=== PATIENT | female | born 1965 | race Caucasian/White ===

== ENCOUNTER 2017-01-21 10:48 | Emergency (ER) | payer BC ==
[~2017-01-21] VITALS: Ht 157.5 cm; Wt 65.0 kg
[2017-01-21 10:51] VITALS: Ht 157.5 cm; Wt 65.0 kg
--- NOTE | 2017-01-21 11:06 | ERD ---
ER Documentation Chief Complaint Chief Complaint Complains of back pain after a slip and fall HPI 51y/o female patient with history of diabetes, presents to the emergency department c/o sudden onset of lower back pain, constant, that started 7 days ago after a ground-level fall landing on her buttocks. The pain is dull, rated 6 /10, without radiation. The symptoms are probably caused by the fall and are associated with decreased range of motion for lateral rotation and bending over. Aggravating factors: Lateral rotation. Alleviating factors: Standing still. Denies fever, chills, N/V/D. No recent history of previous episodes. Treatment attempted: None. Previous evaluation: At the time of the fall 7 days ago, she was seen in the hospital in [place] and according to the patient the x-rays were normal. ROS SYSTEMIC symptoms: no fever, chills, no night sweats, no weight loss EYE symptoms: No blurred vision, no eye discharge OTOLARYNGEAL symptoms: No hearing loss. No ear pain, no sore throat CARDIOVASCULAR symptoms: No chest pain or discomfort, no palpitations. PULMONARY symptoms: No dyspnea, no cough, no wheezing. GASTROINTESTINAL symptoms: No abdominal pain, no nausea, no vomiting, no diarrhea MUSCULOSKELETAL symptoms: No arthralgias, no muscle aches. NEUROLOGY symptoms: No confusion, no syncope, no numbness or tingling. SKIN no rashes Medications Home Meds Active Scripts Ibuprofen* (Motrin*) 600 Mg Tab, 600 MG PO Q8, #30 TAB Prov:COURTNEY MONTGOMERY MD 01/21/17 Hydrocodone/Acetaminophen ([place] 5-325 Tablet) 1 Each Tablet, 1 TAB PO Q6H Y for PAIN, #20 TAB Prov:COURTNEY MONTGOMERY MD 01/21/17 Allergies Allergies: Coded Allergies: morphine (Verified Allergy, Intermediate, 01/21/17) Physical Exam Vitals Vital Signs Date Time Temp Pulse Resp B/P Pulse Ox O2 Delivery O2 Flow Rate FiO2 01/21/17 10:51 98.4 92 20 161/100 98 Physical Exam Patient is in mild acute distress due to pain, vital signs stable. Alert and fully oriented. EYES: PERRLA, EOMI, Sclera and conjunctiva appear normal. EARS: Canals clear, tympanic membranes WNL THROAT: Normal oropharynx. NECK: Supple, No lymphadenopathy. Full ROM without pain or tenderness. HEART: RRR, no rubs, murmurs, clicks or gallops. LUNGS: Clear to auscultation. ABDOMEN: Soft, non-tender without masses or hepatosplenomegaly. EXTREMITIES: No edema bilaterally. BACK: Full ROM, no deformity, bilateral lower muscle spasm. No vertebral tenderness NEURO: Cranial nerves grossly intact, no motor or sensory deficit Results 24 hrs Current Medications Medications (Trade) Dose Ordered Sig/Tao Route PRN Reason Start Time Stop Time Status Last Admin Dose Admin Ketorolac Tromethamine (Toradol) 60 mg ONCE STAT IM 01/21/17 11:10 01/21/17 11:14 DC 01/21/17 11:21 [place] [id number] Radiology Main Line: [phone] DIAGNOSTIC IMAGING REPORT Patient: KP PLAZA : 1965 Age: 51 Sex: F MR #: [id number] DOS: 01/21/17 0000 Ordering MD: COURTNEY MONTGOMERY MD Location: [facility] OF [facility] Room/Bed: PROCEDURE: XR Lumbar Spine. CLINICAL INDICATION: Back pain status post fall. TECHNIQUE: AP, lateral and cone-down lateral views of the lumbar spine were obtained. COMPARISON: No prior studies are available for comparison. FINDINGS: The bone mineralization is age appropriate. There are mild superior endplate compression deformities of the T12 and L1 vertebral bodies. There is also a mild inferior endplate compression deformity of the T12 vertebral body. Osseous alignment appears maintained. No acute subluxation. There is moderate disc space narrowing at L2-L3 with mild disc space narrowing elsewhere. Sacroiliac joints appear patent. IMPRESSION: Mild superior endplate compression deformities of the T12 and L1 vertebral bodies, which maybe more chronic. Mild inferior endplate compression deformity of the T12 vertebral body is age indeterminant. Recommend correlation with pain to assess for acuity. Further evaluation can be obtained with CT. RPTAT: [facility] Physician Alireza Date Time Electronically viewed and signed by Philipy Ho, Physician on 01/21/2017 12:39 PH/ CC: COURTNEY MONTGOMERY MD [place] [id number] Radiology Main Line: [phone] DIAGNOSTIC IMAGING REPORT Patient: KP PLAZA : 1965 Age: 51 Sex: F MR #: [id number] DOS: 01/21/17 1259 Ordering MD: COURTNEY MONTGOMERY MD Location: [facility] Room/Bed: PROCEDURE: CT Lumbar Spine without intravenous contrast CLINICAL INDICATION: Back pain after a fall. COMPARISON: Radiograph 01/21/2017. TECHNIQUE: Axial noncontrast CT images of the lumbar spine with coronal and sagittal reformats. DOSE ESTIMATE: CTDI vol = 8 mGy. DLP = 179 mGy-cm. One or more of the following dose reduction techniques were used: automated exposure control, adjustment of the mA and/or kV according to patient size, or use of iterative reconstruction. FINDINGS: Segmentation: For this report the last well-formed disc is labeled L5-S1. Alignment: Normal. Vertebrae: Diffuse osteopenia. Superior and inferior L3 endplate Schmorl's nodes and irregularity results in 80% height loss. Moderate inferior L2 endplate irregularity. Inferior T12 endplate cupping with probable vertebral height loss. Discs: Marked L2-L3 disc height loss with vacuum phenomenon. Mild L3-L4 and L5- S1 disc height loss. Degenerative change: T12-L1: 2 mm disc bulge results in mild bilateral foraminal narrowing. No significant central canal narrowing. L1-L2: 2 mm disc bulge, mild bilateral facet arthropathy, ligamentum flavum laxity without significant central canal narrowing or foraminal narrowing. L2-L3: 2 mm disc bulge, disc height loss, and dorsal epidural fat results in mild central canal narrowing and moderate bilateral foraminal narrowing. L3-L4: 2 mm disc bulge, ligamentum flavum laxity, and dorsal epidural fat without significant central canal narrowing. Mild right and moderate left foraminal narrowing. L4-L5: 1 mm disc bulge, ligamentum flavum laxity, and dorsal epidural fat results in mild bilateral foraminal narrowing. No significant central canal narrowing. L5-S1: 2 mm disc bulge, moderate ligamentum flavum laxity, disc height loss, and circumferential epidural fat results in minimal central canal narrowing. No significant foraminal narrowing. Para-vertebral soft tissues: Normal. Visualized abdomen and pelvis: Normal. Additional comment: None. IMPRESSION: 1. Osteopenia. 2. Large endplate Schmorl's nodes within the L3 vertebral body result in 80% vertebral height loss. 3. Moderate degenerative disc disease at L2-L3 and L3- L4. If there is clinical concern for a diskitis - osteomyelitis, an MRI could be performed for further evaluation. 4. T12 height loss, predominately involving the endplates, a pattern suggesting at the vertebral height loss is related to underlying osteopenia. RPTAT: PP Physician Vero Date Time Electronically viewed and signed by Physician Vero on 01/21/2017 14: 07 LG/ CC: COURTNEY MONTGOMERY MD Procedures/MDM 51y/o female patient history of diabetes, presents to the ED c/o low back pain for 5 days after a ground-level fall. Vital signs stable, Physical exam unremarkable, neurovascular exam intact. Differential diagnosis include but not limited to: Acute musculoskeletal injury, herniated disc, urolithiasis, UTI , arthritis, degenerative disc disease. Low suspicion for vertebral fracture, cauda equina syndrome, psoas abscess.. Pertinent Data: Radiology: CT lumbar spine requested because abnormal findings in XR may suggest vertebral FX IMPRESSION: 1. Osteopenia. 2. Large endplate Schmorl's nodes within the L3 vertebral body result in 80% vertebral height loss. 3. Moderate degenerative disc disease at L2-L3 and L3- L4. If there is clinical concern for a diskitis - osteomyelitis, an MRI could be performed for further evaluation. 4. T12 height loss, predominately involving the endplates, a pattern suggesting at the vertebral height loss is related to underlying osteopenia. Physical examination and clinical presentation consistent most likely with acute lumbar strain. During the ED course the patient received treatment with Toradol presenting overall improvement of the symptoms. Results and clinical impression discussed with patient who agrees with management. The patient is stable to be treated outpatient and will be discharged home with a Rx for Ulysses and ibuprofen Side effects of prescribed medications (headache, rash, nausea, vomiting, diarrhea) were reviewed. Side effects of prescribed opiates (drowsiness, habituation) were reviewed. Side effects of prescribed NSAID medication (GI distress, edema, bleeding, HTN) were reviewed. The patient was instructed to follow up with the primary care provider in the next 48h. If symptoms persist, worsen or new symptoms develop, then patient should return to the ED immediately. Instructions explained and given to patient in Bel[place]ian with acknowledgment and demonstrated understanding. Disclaimer: Inadvertent spelling and grammatical errors are likely due to EHR/ dictation software use and do not reflect on the overall quality of patient care. Also, please note that the electronic time recorded on this note does not necessarily reflect the actual time of the patient encounter. Departure Diagnosis: Primary Impression: Injury of back Encounter type: initial encounter Qualified Code: S39.92XA - Injury of back , initial encounter Additional Impression: Back pain Back pain location: low back pain Chronicity: acute Back pain laterality: midline Sciatica presence: without sciatica Qualified Code: M54.5 - Acute midline low back pain without sciatica Condition: Stable COURTNEY MONTGOMERY MD Jan 21, 2017 11:06
[2017-01-21] MEDS ORDERED: KETOROLAC 60 MG INJ IM STA (11:10)
--- NOTE | 2017-01-21 12:35 | RADRPT ---
PROCEDURE: XR Sacrum and Coccyx. CLINICAL INDICATION: Pain after falling. TECHNIQUE: AP and lateral views of the sacrum and coccyx were performed. COMPARISON: No prior studies are available for comparison. FINDINGS: There is normal sacral and coccygeal mineralization and alignment. No fracture or subluxation is see n. The sacroiliac joints appear normal. The soft tissues are unremarkable. IMPRESSION: Unremarkable examination of the sacrum and coccyx. RPTAT: EE .Arianna Gill MD, MD Date Time Electronically viewed and signed by .Arianna Gill MD, on 01/21/2017 12:35 .F/
--- NOTE | 2017-01-21 12:39 | RADRPT ---
PROCEDURE: XR Lumbar Spine. CLINICAL INDICATION: Back pain status post fall. TECHNIQUE: AP, lateral and cone-down lateral views of the lumbar spine were obtained. COMPARISON: No prior studies are available for comparison. FINDINGS: The bone mineralization is age appropriate. There are mild superior endplate compression deformities of the T12 and L1 vertebral bodies. There i s also a mild inferior endplate compression deformity of the T12 vertebral body. Osseous alignment appears maintained. No acute subluxation. There is moderate disc space narrowing at L2-L3 with mild disc space narrowing elsewhere. Sacroiliac joints appear patent. IMPRESSION: Mild superior endplate compression deformities of the T12 and L1 vertebral bodies, which maybe more chronic. Mild inferior endplate compression deformity of the T12 vertebral body is age indeterminant . Recommend correlation with pain to assess for acuity. Further evaluation can be obtained with CT. RPTAT: [facility] Tacho Foster Physician Date Time Electronically viewed and signed by Tacho Foster Physician on 01/21/2017 12:39 PH/
--- NOTE | 2017-01-21 14:08 | RADRPT ---
PROCEDURE: CT Lumbar Spine without intravenous contrast CLINICAL INDICATION: Back pain after a fall. COMPARISON: Radiograph 01/21/2017. TECHNIQUE: Axial noncontrast CT images of the lumbar spine with coronal and sagittal reformats. DOSE ESTIMATE: CTDI vol = 8 mGy. DLP = 179 mGy-cm. One or more of the following dose reduction katarina hniques were used: automated exposure control, adjustment of the mA and/or kV according to patient s ize, or use of iterative reconstruction. FINDINGS: Segmentation: For this report the last well-formed disc is labeled L5-S1. Alignment: Normal. Vertebrae: Diffuse osteopenia. Superior and inferior L3 endplate Schmorl's nodes and irregularity re sults in 80% height loss. Moderate inferior L2 endplate irregularity. Inferior T12 endplate cupping with probable vertebral height loss. Discs: Marked L2-L3 disc height loss with vacuum phenomenon. Mild L3-L4 and L5-S1 disc height loss. Degenerative change: T12-L1: 2 mm disc bulge results in mild bilateral foraminal narrowing. No significant central canal narrowing. L1-L2: 2 mm disc bulge, mild bilateral facet arthropathy, ligamentum flavum laxity without significa nt central canal narrowing or foraminal narrowing. L2-L3: 2 mm disc bulge, disc height loss, and dorsal epidural fat results in mild central canal narr owing and moderate bilateral foraminal narrowing. L3-L4: 2 mm disc bulge, ligamentum flavum laxity, and dorsal epidural fat without significant centra l canal narrowing. Mild right and moderate left foraminal narrowing. L4-L5: 1 mm disc bulge, ligamentum flavum laxity, and dorsal epidural fat results in mild bilateral foraminal narrowing. No significant central canal narrowing. L5-S1: 2 mm disc bulge, moderate ligamentum flavum laxity, disc height loss, and circumferential epi dural fat results in minimal central canal narrowing. No significant foraminal narrowing. Para-vertebral soft tissues: Normal. Visualized abdomen and pelvis: Normal. Additional comment: None. IMPRESSION: 1. Osteopenia. 2. Large endplate Schmorl's nodes within the L3 vertebral body result in 80% vertebral height loss. 3. Moderate degenerative disc disease at L2-L3 and L3- L4. If there is clinical concern for a diskit is - osteomyelitis, an MRI could be performed for further evaluation. 4. T12 height loss, predominately involving the endplates, a pattern suggesting at the vertebral hei ght loss is related to underlying osteopenia. RPTAT: PP Wilner Doss Physician Date Time Electronically viewed and signed by Wilner Doss Physician on 01/21/2017 14:07 LG/
[2017-01-21] MEDS ORDERED: IBUP-1542 PO (14:51)
[2017-01-21] MEDS ORDERED: HYDR-906 PO (14:51)
== END 2017-01-21 15:09 | disposition home or self-care (01) ==
LOC: FTE 10:48
DX: S39.92XA Unspecified injury of lower back, initial encounter (principal); W01.0XXA Fall on same level from slipping, tripping and stumbling without subsequent striking against object, initial encounter; Y92.9 Unspecified place or not applicable
CPT/HCPCS: 72100; 72131; 72220; 96372; 99285; J1885

== ENCOUNTER 2017-02-01 19:34 | Emergency (ER) | payer BC ==
[~2017-02-01] VITALS: Ht 162.6 cm; Wt 62.2 kg
[~2017-02-01 19:34] MED LIST: HYDR-906 PO; IBUP-1542 PO
[2017-02-01 19:39] VITALS: Ht 162.6 cm; Wt 62.2 kg
[2017-02-01] MEDS ORDERED: ONDANSETRON (ODT) 4 MG TAB ODT STA (22:10)
[2017-02-01] MEDS ORDERED: KETOROLAC 30 MG INJ IV STA (22:10)
[2017-02-01] MEDS ORDERED: HYDROmorphONE 1 MG/ML SYG IV STA (22:10)
[2017-02-01] MEDS ORDERED: METHYLPREDNISOLONE 125 MG INJ IV ONE (22:30)
--- NOTE | 2017-02-01 22:36 | ERD ---
ER Documentation Chief Complaint Chief Complaint back pain since dec 01 2016 d/t fall;seen an MD but ibuprofen not helping HPI 51-year-old female presents here to emergency department for complaints of lower back pain that has been going on for the last 3 months, patient fell on December 01, was here 1 week ago for severe lower back pain, had radiology exams, found to have osteopenia and severe degenerative disc disease, patient was given [place] and ibuprofen at home which did not help with her pain. Patient describes the pain at this time as 9/10 scale as sharp pain, worse upon movement, patient states that the medicine given to her at home was not really helpful. Patient denies any new symptoms. Patient denies any reinjury. Patient denies any fever or chills. Patient denies any incontinence ROS All systems reviewed and are negative except as per history of present illness. Medications Home Meds Active Scripts Ibuprofen* (Motrin*) 600 Mg Tab, 600 MG PO Q8, #30 TAB Prov:COURTNEY MONTGOMERY MD 01/21/17 Hydrocodone/Acetaminophen ([place] 5-325 Tablet) 1 Each Tablet, 1 TAB PO Q6H Y for PAIN, #20 TAB Prov:COURTNEY MONTGOMERY MD 01/21/17 Allergies Allergies: Coded Allergies: morphine (Verified Allergy, Intermediate, 01/21/17) PMhx/Soc Medical and Surgical Hx: pt denies Medical Hx, pt denies Surgical Hx History of Surgery: No Anesthesia Reaction: No Hx Neurological Disorder: No Hx Respiratory Disorders: No Hx Cardiac Disorders: No Hx Psychiatric Problems: No Hx Miscellaneous Medical Probl: No Hx Alcohol Use: No Hx Substance Use: No Hx Tobacco Use: No Smoking Status: Never smoker FmHx Family History: No coronary disease, No diabetes, No other Physical Exam Vitals Vital Signs Date Time Temp Pulse Resp B/P Pulse Ox O2 Delivery O2 Flow Rate FiO2 02/01/17 19:39 98.2 86 20 134/110 95 Physical Exam GENERAL: The patient is well developed and appropriate for usual state of health, in no apparent distress. CHEST: Clear to auscultation bilaterally. There are no rales, wheezes or rhonchi. HEART: Regular rate and rhythm. No murmurs, clicks, rubs or gallops. No S3 or S4. ABDOMEN: Soft, nontender and nondistended. Good bowel sounds. No rebound or guarding. No gross peritonitis. No gross organomegaly or masses. No Sanz sign or McBurney point tenderness. BACK: No midline or flank tenderness. Negative straight leg test. Tenderness on palpation of paraspinal aspect of the lumbar spine EXTREMITIES: Equal pulses bilaterally. There is no peripheral clubbing, cyanosis or edema. No focal swelling or erythema. Full range of motion. Grossly neurovascularly intact. NEURO: Alert and oriented. Cranial nerves 2-12 intact. Motor strength in all 4 extremities with 5/5 strength. Sensation grossly intact. Normal speech and gait. SKIN: There is no apparent rash or petechia. The skin is warm and dry. HEMATOLOGIC AND LYMPHATIC: There is no evidence of excessive bruising or lymphedema. No gross cervical, axillary, or inguinal lymphadenopathy. Results 24 hrs Current Medications Medications (Trade) Dose Ordered Sig/Tao Route PRN Reason Start Time Stop Time Status Last Admin Dose Admin Hydromorphone HCl (Dilaudid) 1 mg ONCE STAT IV 02/01/17 22:10 02/01/17 22:11 DC 02/01/17 22:34 Ondansetron HCl (Zofran Odt) 4 mg ONCE STAT ODT 02/01/17 22:10 02/01/17 22:11 DC 02/01/17 22:33 Ketorolac Tromethamine (Toradol) 30 mg ONCE STAT IV 02/01/17 22:10 02/01/17 22:11 DC 02/01/17 22:33 Methylprednisolone Sodium Succinate (Solu-Medrol) 125 mg ONCE ONCE IV 02/01/17 22:30 02/01/17 22:31 DC 02/01/17 22:34 Patient was given medication for pain here in emergency department, after treatment, patient verbalized feeling much better. Patient's pain is improved. I discussed this case with my attending physician, Dr. Hinton, recommended to give patient pain control IV pain control, and other testing at this time Dr. Hinton my attending physician evaluated patient with me, patient had a gait test and was able to walk without any difficulty. As per Dr. Hinton's recommendation, patient will be sent home with stronger pain medications and strict return to her precaution for incontinence, any symptoms of any cauda equina syndrome. Patient was advised to return sooner follow-up with primary care doctor in 2-3 days, do outpatient MRI for further evaluation and treatment Procedures/MDM Medical Decision Making: Patient's pain is most likely consistent with a back strain that can be also from degenerative disc disease possible sciatica.. There is no suspicion for neurovascular compromise. Patient has intact sensation and circulation of the affected extremity and distal extremities. No incontinence, no suspicion for cauda equina syndrome, no saddle anesthesia, no symptoms of any acute bacterial infection, no symptoms of any perirectal abscesses, pilonidal cyst.There is low suspicion for septic arthritis. Patient does not have any fever. No symptoms of any aortic dissection or aortic aneurysm. Radiology exam not indicated at this time. He was evaluated by Dr. Hinton, outpatient MRI is recommended. Disposition: Home. Patient is given prescription for ibuprofen for mild to moderate pain, Percocet for severe pain, gabapentin. Patient was advised to avoid heavy lifting , apply warm compresses on affected area. Patient was advised that if symptoms are worse, numbness, tingling, high fever, unable to move joint, worsening symptoms, to return to emergency department immediately. Otherwise, patient is advised to follow up with the primary care doctor in 5-7 days for reevaluation of symptoms. Outpatient MRI is recommended with primary care doctor. Disclaimer: Inadvertent spelling and grammatical errors are likely due to EHR/ dictation software use and do not reflect on the overall quality of patient care. Also, please note that the electronic time recorded on this note does not necessarily reflect the actual time of the patient encounter. Departure Diagnosis: Primary Impression: Back pain Back pain location: low back pain Chronicity: acute Back pain laterality: bilateral Sciatica presence: with sciatica Sciatica laterality: bilateral sciatica Qualified Code: M54.42 - Acute bilateral low back pain with bilateral sciatica Condition: Stable Patient Instructions: Back Pain W/ Sciatica Additional Instructions: Patient is given prescription for ibuprofen for mild to moderate pain, Percocet for severe pain, gabapentin. Patient was advised to avoid heavy lifting , apply warm compresses on affected area. Patient was advised that if symptoms are worse , numbness, tingling, high fever, unable to move joint, worsening symptoms, to return to emergency department immediately. Otherwise, patient is advised to follow up with the primary care doctor in 5-7 days for reevaluation of symptoms. Outpatient MRI is recommended with primary care doctor. ADELSO SANDERS NP Feb 01, 2017 22:36
[2017-02-01] MEDS ORDERED: IBUP-1542 PO (23:35)
[2017-02-01] MEDS ORDERED: OXYC-209 PO (23:35)
[2017-02-01] MEDS ORDERED: GABA300C16 PO (23:35)
[2017-02-02 00:30] VITALS: BP 161/93; PULSE 75; RESP 20; TEMP 97.7
== END 2017-02-02 00:30 | disposition home or self-care (01) ==
LOC: FTE 19:34
DX: M54.42 Lumbago with sciatica, left side (principal)
CPT/HCPCS: 96374; 96375; 99284; J1170; J1885; J2930; Z7610